=== PATIENT | female | born 1965 | race Two or more races ===

== ENCOUNTER 2018-06-26 12:56 | Emergency (ER) | payer BC ==
[2018-06-26] MEDS ORDERED: NORMAL SALINE 1000 ML 1,000 ML IV PRN (13:41)
[2018-06-26] MEDS ORDERED: ONDANSETRON HCL INJ/PF 4 MG/2 ML SDV IV ONE (13:42)
--- NOTE | 2018-06-26 13:53 | ER Document Report ---
ED General - General Chief Complaint: Nausea/Vomiting/Diarrhea Stated Complaint: VOMITING Time Seen by Provider: 06/26/18 13:53 Primary Care Provider: IVONE SOTO MD [ACTIVE STAFF] - Follow up in 3-5 days (or your primary care. ) Notes: Patient is a 53-year-old female that presents to the emergency department for chief complaint of nausea, vomiting, diarrhea and abdominal pain. Patient states that her pain started around 4 AM this morning when she had multiple episodes of nausea, vomiting diarrhea, this is not bilious, and nonbloody. Patient currently rates her pain as a 9 out of 10 describes the right around her bellybutton, she did not have any pain in her upper abdomen. She denies having any fevers, chills, night sweats, chest pain or shortness of breath. She states she is had pain like this before but it has been some time. She describes her pain as a cramping and aching sensation. Past Medical History: Denies chronic medical conditions Past Surgical History: Denies surgical history Social History: Denies tobacco, alcohol or drug use. Family History: Reviewed and noncontributory for presenting illness Allergies: Reviewed, see documented allergy list. REVIEW OF SYSTEMS: Other than noted above, the 12 point review of systems was reviewed with the patient and were negative, all pertinent findings are included in the HPI. PHYSICAL EXAMINATION: Vital signs reviewed, nursing noted reviewed. GENERAL: Well-appearing, well-nourished and in no acute distress. HEAD: Atraumatic, normocephalic. EYES: Eyes appear normal, extraocular movements intact, sclera anicteric, conjunctiva are normal. ENT: nares patent, oropharynx clear without exudates. Moist mucous membranes. NECK: Normal range of motion, supple without lymphadenopathy LUNGS: Breath sounds clear to auscultation bilaterally and equal. No wheezes rales or rhonchi. HEART: Regular rate and rhythm without murmurs ABDOMEN: Soft, tenderness to palpation in the mid abdomen and in the left lower quadrant, normoactive bowel sounds. No rebound, guarding, or rigidity. No masses appreciated. EXTREMITIES: Nontender, good range of motion, no pitting or edema. NEUROLOGICAL: No focal neurological deficits. Moves all extremities spontaneously Motor and sensory grossly intact on exam. PSYCH: Normal mood, normal affect. SKIN: Warm, Dry, normal turgor, no rashes or lesions noted on exposed skin TRAVEL OUTSIDE OF THE [place] IN LAST 30 DAYS: No - Related Data Allergies/Adverse Reactions: No Known Allergies Allergy (Verified 06/26/18 12:57) Past Medical History - Social History Smoking Status: Never Smoker Family History: Reviewed & Not Pertinent Patient has suicidal ideation: No Patient has homicidal ideation: No Renal/ Medical History: Denies: Hx Peritoneal Dialysis Past Surgical History: Reports: Hx Section Physical Exam - Vital signs Vitals: Temp Pulse Resp BP Pulse Ox 98 F 82 22 H 186/96 H 99 06/26/18 13:15 06/26/18 13:15 06/26/18 13:15 06/26/18 13:15 06/26/18 13:15 Course - Re-evaluation Re-evalutation: Patient seen and examined vital signs reviewed. Laboratory data and/or imaging were ordered as appropriate for the patient's presenting symptoms and complaint, with consideration of any critical or life threatening conditions that may be associated with their obtained history and exam as noted above. Patient was treated with IV fluids, Zofran, morphine Results were reviewed when available and demonstrated blood work was unremarkable, CT imaging of the abdomen and pelvis was ordered and demonstrated findings consistent with mild colitis The patient was re-evaluated and was improved after being dosed with IV Dilaudid 1 mg, will give the patient first dose of IV Unasyn, in place of Augmentin p.o., and a dose of IV Flagyl, dispense [place], and Zofran to take home. Evaluation was most consistent with mild colitis, will discharge patient home with 10 days of Flagyl and Augmentin, advised her to follow-up with her primary care. Results were discussed with the patient at this point, after careful consideration I feel that that patient can be discharged from the emergency department, the patient was educated treatments and reasons to return to the emergency department based on their presumed diagnosis as noted above, they were advised to followup with a primary care physician in 2-3 days. Patient was agreeable to plan of care. *Note is created using voice recognition software and may contain spelling, syntax or grammatical errors. Laboratory 06/26/18 06/26/18 06/26/18 13:35 13:35 15:48 WBC 9.7 RBC 4.49 Hgb 13.4 Hct 39.1 MCV 87 MCH 29.9 MCHC 34.3 RDW 12.9 Plt Count 280 Seg Neutrophils % 86.1 H Lymphocytes % 10.1 L Monocytes % 3.4 Eosinophils % 0.0 Basophils % 0.4 Absolute Neutrophils 8.3 H Absolute Lymphocytes 1.0 Absolute Monocytes 0.3 Absolute Eosinophils 0.0 Absolute Basophils 0.0 Sodium 144.8 Potassium 4.2 Chloride 104 Carbon Dioxide 23 Anion Gap 18 BUN 12 Creatinine 0.54 Est GFR ( Amer) > 60 Est GFR (Non-Af Amer) > 60 Glucose 160 H Calcium 10.6 H Total Bilirubin 0.6 Direct Bilirubin 0.2 Neonat Total Bilirubin Not Reportable Neonat Direct Bilirubin Not Reportable Neonat Indirect Bili Not Reportable AST 28 ALT 28 Alkaline Phosphatase 102 Total Protein 8.9 H Albumin 5.1 H Lipase 26.6 Urine Color YELLOW Urine Appearance CLOUDY Urine pH 9.0 Ur Specific [place] 1.019 Urine Protein 30 H Urine Glucose (UA) NEGATIVE Urine Ketones 20 H Urine Blood NEGATIVE Urine Nitrite NEGATIVE Urine Bilirubin NEGATIVE Urine Urobilinogen NEGATIVE Ur Leukocyte Esterase NEGATIVE Urine WBC (Auto) 3 Urine RBC (Auto) 13 Urine Bacteria (Auto) 2+ Squamous Epi Cells Auto 5 Amorphous Sediment Auto TRACE Urine Mucus (Auto) OCC Urine Ascorbic Acid NEGATIVE Abdomen/Pelvis CT 06/26/18 15:48 IMPRESSION: 1. Suspicious for mild colitis. 2. Otherwise unremarkable CT abdomen and pelvis. - Vital Signs Vital signs: Temp Pulse Resp BP Pulse Ox 99.0 F 73 25 H 162/84 H 99 06/26/18 13:36 06/26/18 13:36 06/26/18 15:19 06/26/18 15:19 06/26/18 15:19 - Laboratory Result Diagrams: 06/26/18 13:35 06/26/18 13:35 Laboratory results interpreted by me: 06/26/18 06/26/18 06/26/18 13:35 13:35 15:48 Seg Neutrophils % 86.1 H Lymphocytes % 10.1 L Absolute Neutrophils 8.3 H Glucose 160 H Calcium 10.6 H Total Protein 8.9 H Albumin 5.1 H Urine Protein 30 H Urine Ketones 20 H Discharge - Discharge Clinical Impression: Colitis Condition: Stable Disposition: HOME, SELF-CARE Instructions: Colitis, Nonspecific ([facility]) Additional Instructions: Please complete the entire course of antibiotics as prescribed, in regard to the pain medication, only take if absolutely needed, and the nausea medication can be taken every 4-6 hours. Prescriptions: Amox Tr/Potassium Clavulanate [Augmentin 875-125 Tablet] 1 tab PO BID 10 Days #20 tablet Metronidazole [Flagyl 500 mg Tablet] 500 mg PO Q8H #30 tablet Referrals: IVONE SOTO MD [ACTIVE STAFF] - Follow up in 3-5 days (or your primary care. )
[2018-06-26 13:58] LABS: ABSOLUTE MONOCYTES (AUTO) 0.3 10^3/uL (0.1-1.4); ABSOLUTE NEUT (AUTO) 8.3 10^3/uL (1.7-8.2); BASOPHILS % (AUTO) 0.4 % (0-2); HEMATOCRIT 39.1 % (36.0-47.0); HEMOGLOBIN 13.4 g/dL (12.0-15.5); LYMPHOCYTES % (AUTO) 10.1 % (13-45); MEAN CORPUSCULAR HEMOGLOBIN 29.9 pg (27.0-33.4); MEAN CORPUSCULAR HGB CONC 34.3 g/dL (32.0-36.0); MEAN CORPUSCULAR VOLUME 87 fl (80-97); MONOCYTES % (AUTO) 3.4 % (3-13); PLATELET COUNT 280 10^3/uL (150-450); RED BLOOD COUNT 4.49 10^6/uL (3.72-5.28); RED CELL DISTRIBUTION WIDTH 12.9 % (11.5-14.0); SEGMENTED NEUTROPHILS % (AUTO) 86.1 % (42-78); TOTAL CELLS COUNTED % (AUTO) 100 %; WHITE BLOOD COUNT 9.7 10^3/uL (4.0-10.5)
[2018-06-26 14:09] LABS: ALANINE AMINOTRANSFERASE 28 U/L (9-52); ALBUMIN 5.1 g/dL (3.5-5.0); ALKALINE PHOSPHATASE 102 U/L (38-126); ANION GAP 18 (5-19); ASPARTATE AMINO TRANSFERASE 28 U/L (14-36); BILIRUBIN,DIRECT 0.2 mg/dL (0.0-0.4); BILIRUBIN,TOTAL 0.6 mg/dL (0.2-1.3); BLOOD UREA NITROGEN 12 mg/dL (7-20); CALCIUM 10.6 mg/dL (8.4-10.2); CARBON DIOXIDE 23 mmol/L (22-30); CHLORIDE 104 mmol/L (98-107); GLUCOSE 160 mg/dL (75-110); LIPASE 26.6 U/L (23-300); POTASSIUM 4.2 mmol/L (3.6-5.0); SODIUM 144.8 mmol/L (137-145); TOTAL PROTEIN 8.9 g/dL (6.3-8.2)
[2018-06-26] MEDS ORDERED: PROMETHAZINE HCL INJ 25 MG/1 ML VIAL IV ONE (14:22)
[2018-06-26] MEDS ORDERED: MORPHINE SULFATE 10 MG/ML INJ IV ONE (14:23)
[2018-06-26] MEDS ORDERED: HYDROMORPHONE HCL INJ/PF 2 MG/ML AMPULE IV ONE ×2 (15:48→18:34)
[2018-06-26] MEDS ORDERED: METOCLOPRAMIDE HCL INJ/PF 10 MG/2 ML SDV IV ONE (15:49)
[2018-06-26 16:20] LABS: AMORPHOUS SEDIMENT,URINE TRACE /HPF; APPEARANCE,URINE CLOUDY; BILIRUBIN,URINE NEGATIVE (NEGATIVE); COLOR,URINE YELLOW; GLUCOSE, URINE NEGATIVE (NEGATIVE); KETONES,URINE 20 mg/dL (NEGATIVE); LEUKOCYTE ESTERASE,URINE NEGATIVE (NEGATIVE); NITRITE,URINE NEGATIVE (NEGATIVE); PROTEIN,URINE 30 mg/dL (NEGATIVE); URINE SPECIFIC GRAVITY 1.019; UROBILINOGEN,URINE NEGATIVE mg/dL (<2.0)
--- NOTE | 2018-06-26 17:06 | RADIOLOGY REPORT (SQ) ---
EXAM DESCRIPTION: CT ABD/PELVIS WITH IV ONLY COMPLETED DATE/TIME: 06/26/2018 4:46 pm REASON FOR STUDY: llq abdominal pain COMPARISON: None. TECHNIQUE: CT scan of the abdomen and pelvis performed using helical scanning technique with dynamic intravenous contrast injection. No oral contrast. Images reviewed with lung, soft tissue, and bone windows. Reconstructed coronal and sagittal MPR images reviewed. Delayed images for evaluation of the urinary system also acquired. All images stored on PACS. All CT scanners at this facility use dose modulation, iterative reconstruction, and/or weight based d osing when appropriate to reduce radiation dose to as low as reasonably achievable (ALARA). [facility]: Dose Right [facility]: CareDose [facility]: Dose Right [facility]: Teradose 4D [facility]: NebuAd CONTRAST TYPE AND DOSE: contrast/concentration: Isovue 350.00 mg/ml; Total Contrast Delivered: 83.0 ml; Total Saline Delivered: 69.0 ml RENAL FUNCTION: Creatinine 0.59 RADIATION DOSE: CT Rad equipment meets quality standard of care and radiation dose reduction techniq ues were employed. CTDIvol: 8.3 - 11.6 mGy. DLP: 1008 mGy-cm.. LIMITATIONS: None. FINDINGS: LOWER CHEST: No significant findings. No nodules or infiltrates. LIVER: Normal size. No masses. No dilated ducts. SPLEEN: Normal size. No focal lesions. PANCREAS: No masses. No significant calcifications. No adjacent inflammation or peripancreatic fluid collections. Pancreatic duct not dilated. GALLBLADDER: No identified stones by CT criteria. No inflammatory changes to suggest cholecystitis. ADRENAL GLANDS: No significant masses or asymmetry. RIGHT KIDNEY AND URETER: No solid masses. No significant calcification. No hydronephrosis or hydroure ter. LEFT KIDNEY AND URETER: No solid masses. No significant calcification. No hydronephrosis or hydrouret er. AORTA AND VESSELS: No aneurysm. No dissection. Renal arteries, SMA, celiac without stenosis. RETROPERITONEUM: No retroperitoneal adenopathy, hemorrhage or masses. BOWEL AND PERITONEAL CAVITY: Slight wall thickening and minimal pericolonic fat stranding about the s plenic flexure. No mechanical bowel obstruction. APPENDIX: Normal. PELVIS: No mass. No free fluid. Normal bladder. ABDOMINAL WALL: No masses. No significant hernias. BONES: No significant or acute findings. OTHER: No other significant finding. IMPRESSION: 1. Suspicious for mild colitis. 2. Otherwise unremarkable CT abdomen and pelvis. TECHNICAL DOCUMENTATION: JOB ID: [id number] Quality ID # [id number]: Final reports with documentation of one or more dose reduction techniques (e.g., Au tomated exposure control, adjustment of the mA and/or kV according to patient size, use of iterative reconstruction technique) 2010 [employer]- All Rights Reserved Reading location - IP/workstation name: [email or web address]
[2018-06-26] MEDS ORDERED: AMPICILLIN SOD/SULBACTAM 3 GM VIAL IV ONE (17:28)
[2018-06-26] MEDS ORDERED: METRONIDAZOLE 500 MG/NS RTU 500 MG/100 ML RTUPB IV ONE (17:29)
[2018-06-26] MEDS ORDERED: HYDROCODONE/ACETAMINOPHEN 5-325 MG (6 TAB/ER DISP) PO PRN (17:38)
[2018-06-26] MEDS ORDERED: ONDANSETRON ODT 4 MG TAB (6 TAB/ER DISP) PO PRN (17:38)
[2018-06-26 20:45] VITALS: BP 163/86
== END 2018-06-26 20:45 | disposition home or self-care (01) ==
LOC: ER 12:56
DX: K52.9 Noninfective gastroenteritis and colitis, unspecified (principal); R11.2 Nausea with vomiting, unspecified; R10.33 Periumbilical pain
CPT/HCPCS: 96376; 99284; 96361; 96375; 36415; 83690; 85025; 80053; 81001; 74177; J0295; J2765; J3490; J2270; J1170; J2550; J2405; J7030; 96374